=== PATIENT | male | born 1945 | race Caucasian/White ===

== ENCOUNTER 2024-04-05 18:24 | Emergency (ER) | payer MEDICARE ==
[~2024-04-05] VITALS: Ht 172.7 cm; Wt 85.0 kg
[2024-04-05 19:51] VITALS: BP 155/80; PULSE 68; RESP 16; TEMP 98; O2SAT 94
== END 2024-04-05 19:53 | disposition home or self-care (01) ==
LOC: ER 18:25
DX: I10 Essential (primary) hypertension (principal)
CPT/HCPCS: 99281